=== PATIENT | female | born 1975 | race Caucasian/White ===

== ENCOUNTER 2018-12-27 23:40 | Emergency (ER) | payer OTHER ==
[2014-09-11 09:02] VITALS: Wt 104.3 kg
[~2018-12-27 23:40] MED LIST: ACE3 PO; CEFU500T50 PO; CLON-331 PO; CYCL10TA29 PO; DOCU240C67 PO; ESCI10TA8 PO; ESCI20TA38 PO; FERR-59 PO; FLAX100042 PO; Ferrous Sulfate PO; HYDR-3072 PO; IBU800 PO; IBUP800T37 PO; LOR5/325 PO; METR70GE2 PV; MULT-1335 PO; OMEP-137 PO; OXYC-373 PO; RIVA15TA PO; RIVA20TA PO; TRIC15T TOP
--- NOTE | 2018-12-28 00:06 | ER Report ---
History and Physical Time Seen By MD: 23:56 Hx. of Stated Complaint: PATIENT STATES THAT ABOUT 3 HOURS AGO SHE STARTED HAVING RECTAL BLEEDING AND STATES THAT IT HAS GOTTEN WORSE HPI/ROS CHIEF COMPLAINT: rectal bleeding HISTORY OF PRESENT ILLNESS: This is a 43 year old female. She started having bright red blood per rectum about 3 hours ago. Estimate as about the same as a moderate period. Has passed this a few times. Having some nausea. Mild discomfort abdomen, central. Mild dizziness. No shortness of breath. No other bleeding. Normal urination. Has some intermittent loose stools at times as a general rule, but no constipation. No fevers or chills. No blood thinner or aspirin use. Allergies: Coded Allergies: diphenhydramine (Verified Adverse Reaction, Intermediate, BECOMES VERY SEDATED, 07/16/16) Home Meds Reported Medications Escitalopram Oxalate (LEXAPRO) 20 Mg Tablet, 20 MG PO QDAY, TAB 03/14/17 Reviewed Nurses Notes: Yes Hx Smoking: Yes Smoking Status: Heavy Tobacco Smoker Exposure to Second Hand Smoke?: No Hx Substance Use Disorder: No Hx Alcohol Use: Yes Constitutional Vital Sign - Last 24 Hours 12/27/18 12/27/18 12/28/18 12/28/18 23:44 23:47 00:10 00:13 Temp 98.6 Pulse 75 78 Resp 18 B/P (MAP) 135/103 135/103 (114) 119/90 (100) Pulse Ox 92 93 O2 Delivery Room Air 12/28/18 12/28/18 12/28/18 12/28/18 00:30 00:40 01:00 01:10 B/P (MAP) 109/68 (82) 113/68 (83) Pulse Ox 91 90 12/28/18 12/28/18 12/28/18 12/28/18 01:21 01:22 01:52 02:00 Pulse 70 71 B/P (MAP) 117/66 (83) 117/64 (81) Pulse Ox 91 12/28/18 12/28/18 12/28/18 12/28/18 02:02 02:07 02:30 02:37 Pulse 71 67 B/P (MAP) 107/50 (69) Pulse Ox 92 92 88 12/28/18 02:55 B/P (MAP) 119/60 (79) Physical Exam General Appearance: The patient is alert. No acute distress. Eyes: Pupils are equal, round. No pallor, injection or icterus. ENT: Mucous membranes are moist. Neck: Supple and non tender. Respiratory: Lungs are clear to auscultation. Cardiovascular: Regular rate and rhythm. No murmurs, gallops or rubs. Normal capillary refill. No edema. Gastrointestinal: Abdomen is soft, some discomfort, nondistended. No rebound or guarding. Normal active bowel sounds. No costovertebral angle tenderness with percussion. Neurological: Alert and oriented x3. Skin: Warm and dry. No rashes. Musculoskeletal: No tenderness in palpation of the back and spine. DIFFERENTIAL DIAGNOSIS: After history and physical exam, differential diagnosis was considered for gastrointestinal bleeding, bright red, consider lower gi ble eding causes. Medical Decision Making Data Points Result Diagram: 12/28/18 0000 12/28/18 0000 Laboratory Hematology Test 12/28/18 00:00 12/28/18 01:19 Red Blood Count 4.35 M/uL (4.17-5.56) Mean Corpuscular Volume 92.1 fL (80.0-96.0) Mean Corpuscular Hemoglobin 32.3 pg (26.0-33.0) Mean Corpuscular Hemoglobin Concent 35.1 g/dL (32.0-36.0) Red Cell Distribution Width 12.7 % (11.5-14.5) Mean Platelet Volume 7.6 fL (7.2-11.1) Neutrophils (%) (Auto) % (39.4-72.5) Lymphocytes (%) (Auto) % (17.6-49.6) Monocytes (%) (Auto) % (4.1-12.4) Eosinophils (%) (Auto) % (0.4-6.7) Basophils (%) (Auto) % (0.3-1.4) Nucleated RBC Relative Count (auto) /100WBC Neutrophils # (Auto) K/uL (2.0-7.4) Lymphocytes # (Auto) K/uL (1.3-3.6) Monocytes # (Auto) K/uL (0.3-1.0) Eosinophils # (Auto) K/uL (0.0-0.5) Basophils # (Auto) K/uL (0.0-0.1) Nucleated RBC Absolute Count (auto) K/uL Neutrophils % (Manual) 69 % (39.4-72.5) Band Neutrophils % 4 % Lymphocytes % (Manual) 11 % (17.6-49.6) Atypical Lymphocytes % 11 % Monocytes % (Manual) 4 % (4.1-12.4) Eosinophils % (Manual) 1 % (0.4-6.7) Basophils % (Manual) 0 % (0.3-1.4) Peripheral Blood Smear Yes Y/N Prothrombin Time 12.3 seconds (12.0-14.4) Prothromb Time International Ratio 0.91 Activated Partial Thromboplast Time 35 seconds (23-35) Sodium Level 139 mmol/L (137-145) Potassium Level 3.7 mmol/L (3.5-5.0) Chloride Level 108 mmol/L (98-107) Carbon Dioxide Level 20 mmol/L (22-31) Blood Urea Nitrogen 15 mg/dl (7-18) Creatinine 0.60 mg/dl (0.52-1.04) Glomerular Filtration Rate Calc > 60.0 Random Glucose 124 mg/dl (75-110) Calcium Level 8.6 mg/dl (8.4-10.2) Total Bilirubin 0.3 mg/dl (0.2-1.3) Aspartate Amino Transf (AST/SGOT) 27 U/L (0-35) Alanine Aminotransferase (ALT/SGPT) 23 U/L (0-56) Alkaline Phosphatase 66 U/L (0-126) Total Protein 7.0 g/dl (6.3-8.2) Albumin 4.1 g/dl (3.5-5.0) Urine Color Yellow Urine Clarity Slightly-cloudy Urine pH 5.0 pH (4.8-9.5) Urine Specific [place] 1.010 Urine Protein Negative mg/dL (NEGATIVE) Urine Glucose (UA) Negative mg/dL (NEGATIVE) Urine Ketones Negative mg/dL (NEGATIVE) Urine Blood Negative (NEGATIVE) Urine Nitrite Negative (NEGATIVE) Urine Bilirubin Negative (NEGATIVE) Urine Urobilinogen Negative mg/dL (0.2-1.9) Urine Leukocyte Esterase Negative (NEGATIVE) Urine RBC None /HPF (0-2/HPF) Urine WBC <1 /HPF (0-5/HPF) Urine Squamous Epithelial Cells Many /LPF (</=FEW) Urine Transitional Epithelial Cells Few /LPF (NONE-FEW) Urine Bacteria Few /HPF (NONE-FEW) Urine Mucus Few /HPF (NONE-FEW) Chemistry Test 12/28/18 00:00 12/28/18 01:19 White Blood Count 10.0 k/uL (4.5-11.0) Red Blood Count 4.35 M/uL (4.17-5.56) Hemoglobin 14.1 g/dL (12.0-16.0) Hematocrit 40.1 % (34.0-47.0) Mean Corpuscular Volume 92.1 fL (80.0-96.0) Mean Corpuscular Hemoglobin 32.3 pg (26.0-33.0) Mean Corpuscular Hemoglobin Concent 35.1 g/dL (32.0-36.0) Red Cell Distribution Width 12.7 % (11.5-14.5) Platelet Count 279 K/uL (150-450) Mean Platelet Volume 7.6 fL (7.2-11.1) Neutrophils (%) (Auto) % (39.4-72.5) Lymphocytes (%) (Auto) % (17.6-49.6) Monocytes (%) (Auto) % (4.1-12.4) Eosinophils (%) (Auto) % (0.4-6.7) Basophils (%) (Auto) % (0.3-1.4) Nucleated RBC Relative Count (auto) /100WBC Neutrophils # (Auto) K/uL (2.0-7.4) Lymphocytes # (Auto) K/uL (1.3-3.6) Monocytes # (Auto) K/uL (0.3-1.0) Eosinophils # (Auto) K/uL (0.0-0.5) Basophils # (Auto) K/uL (0.0-0.1) Nucleated RBC Absolute Count (auto) K/uL Neutrophils % (Manual) 69 % (39.4-72.5) Band Neutrophils % 4 % Lymphocytes % (Manual) 11 % (17.6-49.6) Atypical Lymphocytes % 11 % Monocytes % (Manual) 4 % (4.1-12.4) Eosinophils % (Manual) 1 % (0.4-6.7) Basophils % (Manual) 0 % (0.3-1.4) Peripheral Blood Smear Yes Y/N Prothrombin Time 12.3 seconds (12.0-14.4) Prothromb Time International Ratio 0.91 Activated Partial Thromboplast Time 35 seconds (23-35) Glomerular Filtration Rate Calc > 60.0 Calcium Level 8.6 mg/dl (8.4-10.2) Total Bilirubin 0.3 mg/dl (0.2-1.3) Aspartate Amino Transf (AST/SGOT) 27 U/L (0-35) Alanine Aminotransferase (ALT/SGPT) 23 U/L (0-56) Alkaline Phosphatase 66 U/L (0-126) Total Protein 7.0 g/dl (6.3-8.2) Albumin 4.1 g/dl (3.5-5.0) Urine Color Yellow Urine Clarity Slightly-cloudy Urine pH 5.0 pH (4.8-9.5) Urine Specific [place] 1.010 Urine Protein Negative mg/dL (NEGATIVE) Urine Glucose (UA) Negative mg/dL (NEGATIVE) Urine Ketones Negative mg/dL (NEGATIVE) Urine Blood Negative (NEGATIVE) Urine Nitrite Negative (NEGATIVE) Urine Bilirubin Negative (NEGATIVE) Urine Urobilinogen Negative mg/dL (0.2-1.9) Urine Leukocyte Esterase Negative (NEGATIVE) Urine RBC None /HPF (0-2/HPF) Urine WBC <1 /HPF (0-5/HPF) Urine Squamous Epithelial Cells Many /LPF (</=FEW) Urine Transitional Epithelial Cells Few /LPF (NONE-FEW) Urine Bacteria Few /HPF (NONE-FEW) Urine Mucus Few /HPF (NONE-FEW) Coagulation Test 12/28/18 00:00 Prothrombin Time 12.3 seconds Prothromb Time International Ratio 0.91 Activated Partial Thromboplast Time 35 seconds Urinalysis Test 12/28/18 01:19 Urine Color Yellow Urine Clarity Slightly-cloudy Urine pH 5.0 pH (4.8-9.5) Urine Specific [place] 1.010 Urine Protein Negative mg/dL (NEGATIVE) Urine Glucose (UA) Negative mg/dL (NEGATIVE) Urine Ketones Negative mg/dL (NEGATIVE) Urine Blood Negative (NEGATIVE) Urine Nitrite Negative (NEGATIVE) Urine Bilirubin Negative (NEGATIVE) Urine Urobilinogen Negative mg/dL (0.2-1.9) Urine Leukocyte Esterase Negative (NEGATIVE) Urine RBC None /HPF (0-2/HPF) Urine WBC <1 /HPF (0-5/HPF) Urine Squamous Epithelial Cells Many /LPF (</=FEW) Urine Transitional Epithelial Cells Few /LPF (NONE-FEW) Urine Bacteria Few /HPF (NONE-FEW) Urine Mucus Few /HPF (NONE-FEW) EKG/Imaging Imaging EXAMINATION: Abdomen and pelvis CT with contrast HISTORY: Rectal bleeding, abdominal pain TECHNIQUE: CT was performed through the abdomen and pelvis following injection of iodinated intravenous contrast. Sagittal and coronal MPR reformatted images were generated. 75 mL isovue 370 injected. One of the following dose optimization techniques was utilized in the perfor aravind of this exam: automated exposure control; adjustment of the mA and/or kV according to patient size; or use of iterative reconstruction technique. Specific details can be referenced in the facility's radiology CT exam operational policy. COMPARISON: 09/10/2014 FINDINGS: Lower chest: Normal. Spleen: Normal. Adrenal glands: Normal. Pancreas: Normal. Kidneys: Small exophytic left renal cyst has increased in size. Otherwise unremarkable. Gallbladder: Normal. Liver: Normal. Vessels: Normal. Lymph node assessment: Normal. Bowel including small bowel, colon and appendix: Normal stomach, normal small bowel, normal appendix, and normal colon. Peritoneum / retroperitoneum / mesentery: Normal. Pelvic structures: Normal bladder, absent uterus and normal rectum. No pelvic fluid or adenopathy. Body wall: Small fat-containing umbilical hernia has increased in size. Small fat-containing left inguinal hernia similar to prior. Musculoskeletal: New chronic sclerosis in the left greater than right pubic bodies. Mild new pubic symphysis degeneration. Sclerosis adjacent to the right greater than left sacroiliac joints has increased. No SI joint erosions. No acu te osseous abnormality. Moderate to severe right L4-5 unchanged facet arthropathy. Moderate unchanged L5-S1 facet arthropathy. IMPRESSION: 1. No acute finding. 2. 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 3. Surgically absent uterus. 4. Small fat-containing umbilical hernia has increased in size. Unchanged small fat-containing left inguinal hernia. 5. Unchanged L4-5 and L5-S1 degenerative facet arthropathy. Report Dictated By: Matt Roman MD at 12/28/2018 1:54 AM ED Course/Re-evaluation Clinical Indication for ER IV: Hydration, IV Access ED Course Labs and imaging without acute cause of bleeding or pain. Has incidental findings on CT scan only. No further bleeding here. Recommend follow-up with Dr. Morrow. Decision to Disposition Date: Dec 28, 2018 Decision to Disposition Time: 02:51 Depart Departure Latest Vital Signs Vital Signs Date Time Temp Pulse Resp B/P (MAP) Pulse Ox O2 Delivery O2 Flow Rate FiO2 12/28/18 02:55 119/60 (79) 12/28/18 02:37 67 88 12/27/18 23:44 98.6 18 Room Air Impression: Primary Impression: Rectal bleeding Condition: Improved Disposition: HOME OR SELF-CARE Referrals: EDWIN ZEPEDA MD (PCP) Patient Instructions: Gastrointestinal Bleeding (ED) Additional Instructions: Labs and imaging were negative tonight. Please call Dr. Morrow's office later this morning to schedule a follow-up appointment with him for further evaluation. KAYLAH HARVEY MD Dec 28, 2018 00:06
[2018-12-28] MEDS ORDERED: ONDANSETRON 4 MG/2 ML VIAL IVP ONE (00:10)
[2018-12-28] MEDS ORDERED: NS(*) 0.9% 1000 ML BAG 1,000 ML IV ONE (00:10)
[2018-12-28 00:32] LABS: INR 0.91
[2018-12-28 00:46] LABS: PLATELET COUNT, AUTOMATED 279 K/uL (150-450)
[2018-12-28] MEDS ORDERED: IOPAMIDOL 76% 100 ML INFUS BTL 100 ML ONE (01:09)
--- NOTE | 2018-12-28 02:11 | RADIOLOGY IMAGING REPORT ---
FACILITY: [facility] PATIENT NAME: Fani Early : 1975 MR: [id number] V: [id number] EXAM DATE: ORDERING PHYSICIAN: KAYLAH HARVEY TECHNOLOGIST: Location: [facility] Patient: Fani Early : 1975 Visit/Account:[id number] Date of Sevice: 12/28/2018 EXAMINATION: Abdomen and pelvis CT with contrast HISTORY: Rectal bleeding, abdominal pain TECHNIQUE: CT was performed through the abdomen and pelvis following injection of iodinated intrave nous contrast. Sagittal and coronal MPR reformatted images were generated. 75 mL isovue 370 injected . One of the following dose optimization techniques was utilized in the performance of this exam: autom ated exposure control; adjustment of the mA and/or kV according to patient size; or use of iterative reconstruction technique. Specific details can be referenced in the facility's radiology CT exam ope rational policy. COMPARISON: 09/10/2014 FINDINGS: Lower chest: Normal. Spleen: Normal. Adrenal glands: Normal. Pancreas: Normal. Kidneys: Small exophytic left renal cyst has increased in size. Otherwise unremarkable. Gallbladder: Normal. Liver: Normal. Vessels: Normal. Lymph node assessment: Normal. Bowel including small bowel, colon and appendix: Normal stomach, normal small bowel, normal appendix, and normal colon. Peritoneum / retroperitoneum / mesentery: Normal. Pelvic structures: Normal bladder, absent uterus and normal rectum. No pelvic fluid or adenopathy. Body wall: Small fat-containing umbilical hernia has increased in size. Small fat-containing left ing uinal hernia similar to prior. Musculoskeletal: New chronic sclerosis in the left greater than right pubic bodies. Mild new pubic sy mphysis degeneration. Sclerosis adjacent to the right greater than left sacroiliac joints has increas ed. No SI joint erosions. No acute osseous abnormality. Moderate to severe right L4-5 unchanged facet arthropathy. Moderate unchanged L5-S1 facet arthropathy . IMPRESSION: 1. No acute finding. 2. Increased sclerosis surrounding the right greater than left SI joints without SI joint erosion, fi ndings in keeping with benign osteitis condensans ilii. 3. Surgically absent uterus. 4. Small fat-containing umbilical hernia has increased in size. Unchanged small fat-containing left i nguinal hernia. 5. Unchanged L4-5 and L5-S1 degenerative facet arthropathy. Report Dictated By: Matt Roman MD at 12/28/2018 1:54 AM Report E-Signed By: Matt Roman MD at 12/28/2018 2:07 AM WSN:[id number]
[2018-12-28 02:55] VITALS: BP 119/60
== END 2018-12-28 03:18 | disposition home or self-care (01) ==
LOC: ER 23:45
DX: K62.5 Hemorrhage of anus and rectum (principal)
CPT/HCPCS: 74177; 81001; 85025; 85610; 85730; 96361; 96374; 99284; J2405; J7030; Q9967; 82040; 82247; 82310; 82374; 82435; 82565; 82947; 84075; 84132; 84155; 84295; 84450; 84460; 84520

== ENCOUNTER → 2019-02-05 | Outpatient (REF) | payer OTHER ==
[2014-09-11 09:02] VITALS: BMI 30.5
[2019-02-05 10:04] LABS: INR 0.97
== END ==
LOC: ZZSENDIN 09:46
PROVIDERS: ATTEND Family Medicine
DX: R23.3 Spontaneous ecchymoses (principal)
CPT/HCPCS: 85610; 85730